=== PATIENT | female | born 1970 | race Caucasian/White ===

== ENCOUNTER 2021-05-10 06:21 | Emergency (ER) | payer BC, OTHER, SELFPAY ==
[2021-05-10 06:25] VITALS: BP 126/86; PULSE 106; RESP 16; TEMP 36.8; O2SAT 97; BMI 35.2
--- NOTE | 2021-05-10 07:20 | ED_ITS ---
HPI - Neck Pain/Injury General: Chief Complaint: Neck Pain/Injury Stated Complaint: felt pop in neck Time Seen by Provider: 05/10/21 06:59 Source: patient Mode of arrival: ambulatory Limitations: no limitations History of Present Illness: HPI Narrative: Patient is a 51-year-old female presents to ED today with a complaint of neck and right shoulder pain. Patient states 4 days ago while washing dishes she felt immediate stabbing sensation in between her upper back and right shoulder blade. She states since that time she has noticed some pain on the right side of her neck as well. Pain seems to be improved with immobilization of the right upper extremity and seems to be worsened with range of motion of her neck and right shoulder. She does complain of pain traveling down her right upper extremity to approximately her elbow. She does not have a headache. No visual changes. She does not describe weakness to the arm or numbness/tingling. Patient states she has been treating with acetaminophen, aspirin, ice/heat. States she recently moved from [place] and does not have a PCP. MD complaint: neck pain and upper back pain Onset (ago): day(s) Place: home Radiation: right lateral, right shoulder and right upper extremity Severity: severe Quality: burning and stabbing Duration: constant Relieving factors: immobilization Exacerbating factors: movement of extremity and movement of neck Associated symptoms: Reports no associated symptoms; Denies dizziness or headache(s) Treatments prior to arrival: acetaminophen and other (aspirin) Review of Systems Const: Denies: fever(s), chills, body aches, fatigue or malaise Eyes: Denies: change in vision, blurry vision or photophobia Card: Denies: chest pain or palpitations Resp: Denies: dyspnea GI: Denies: abdominal pain Musc: Reports: neck pain and joint pain (R shoulder); Denies: back pain, extremity pain, extremity swelling or joint swelling Neuro: Denies: headache(s), numbness in extremities, weakness in extremities, sensory changes or dizziness Physical Exam Const: COMMON NORMALS: no acute distress, patient oriented x3, no limitations and alert GENERAL APPEARANCE: cooperative NUTRITIONAL APPEARANCE: obese ORIENTATION/CONSCIOUSNESS: Yes awake, Yes oriented to person, Yes oriented to place and Yes oriented to time HENMT: COMMON NORMALS: normocephalic and atraumatic HEAD & SCALP: normal to inspection, normocephalic and atraumatic Eye: GENERAL EYE: normal light reflex DIRECT OPHTHALMOSCOPY: Yes normal light reflex Neck/C-Spine: COMMON NORMALS: full ROM, no lymphadenopathy and no meningeal signs CERVICAL SPINE: Yes cervical ROM normal, No step off deformity, Yes Paracervical muscle tenderness, Yes Trapezius muscle tenderness and No Lhermitte's sign positive OTHER: patient has TTP throughout R paraspinal cervical muscles-pain is worse with L flexion and lateral rotation to the R patient has maximum tenderness to the R of her thoracic in between medial edge of scapula; ROM of her shoulder (full) elicits discomfort here NECK IMAGES: 1. Shoulders Back: 1. Resp: COMMON NORMALS: normal respiratory effort and clear to auscultation bilaterally AUSCULTATION: clear to auscultation bilaterally Cardio: COMMON NORMALS: regular rate and regular rhythm RATE: regular rate RHYTHM: regular rhythm Back/Pelvis: THORACIC SPINE/UPPER BACK: Yes paraspinal muscle tenderness Thoracic paraspinal muscle tenderness: right LUMBAR SPINE/LOWER BACK: Yes normal to inspection and No lumbar spinal tenderness Extremity: COMMON NORMALS: normal to inspection, full ROM and capillary refill normal GENERAL: Yes normal exam except as noted RIGHT UPPER EXTREMITY: Yes shoulder joint (full ROM but movement elicits pain to R thoracic paraspinal muscles) Neuro: ALPHONSE COMA SCALE: document [facility] findings [place] coma scale eye opening: Spontaneous [place] coma scale verbal response: Orientated [place] coma scale motor response: Obey commands [place] coma scale total score: 15 COMMON NORMALS: patient oriented x3, CN's II-XII intact bilaterally, moves all extremities, no focal motor deficits, no sensory deficits noted and gait normal SENSORIUM/ORIENTATION: Yes alert, Yes oriented to person, Yes oriented to place and Yes oriented to time MENINGEAL SIGNS: Yes no meningeal signs Skin: COMMON NORMALS: no rashes or lesions noted GENERAL SKIN EXAM: no rashes or lesions noted TRAUMA: no lacerations or abrasions Course 2 Vital Signs: Vital signs: Vital Signs Temperature 98.2 F 05/10/21 06:25 Pulse Rate 106 H 05/10/21 06:25 Respiratory Rate 16 05/10/21 06:25 Blood Pressure 126/86 05/10/21 06:25 Pulse Oximetry 97 05/10/21 06:25 MDM - Neck Pain/Injury MDM Narrative: Medical decision making narrative: DDx-trapezius/shoulder strain, cervical strain/cervical radiculopathy, facet osteoarthritis, or other musculoskeletal strain. No red flags on exam. Will treat with steroids, muscle relaxers, and pain meds (she has been taking aspirin and acetaminophen without relief/allergy to NSAIDS) and have her follow up with primary care for further evaluation/management if symptoms do not improve. Discharge Plan Discharge Patient Disposition: Home Clinical Impression: Strain of right trapezius muscle Qualifiers: Encounter type: initial encounter Qualified Code(s): S46.811A - Strain of other muscles, fascia and tendons at shoulder and upper arm level, right arm, initial encounter Condition: Stable Prescriptions: New cyclobenzaprine 10 mg tablet 10 mg PO TID Qty: 14 RF: 0 tramadol 50 mg tablet 50 mg PO Q6H PRN (Reason: pain) Qty: 14 RF: 0 Medrol (Donnie) 4 mg tablets,dose pack See Rx Instructions .ROUTE .COMPLEX Qty: 21 RF: 0 Discharge Orders: Discharge ED (Routine); Ordered 05/10/21 Ordered By: Kori Can Patient Instructions: Muscle Strain (ED), Musculoskeletal Pain (ED) Activity Restrictions/Additional Instructions: As we discussed case management should contact you shortly to set you up with a primary care provider for further evaluation and follow-up. Coding Level of Care Code ED [employer] for [employer] Fwd Exam Comprehensive
[2021-05-10] MEDS: dexamethasone 10 mg/mL INJ 8 MG IM (07:35)
[2021-05-10 07:45] VITALS: BP 126/86; PULSE 106; RESP 16; TEMP 36.8; O2SAT 97
--- NOTE | 2021-05-16 13:37 | DCPLANNER ---
rd manager had message to speak with patient about getting established with a primary care physician. rd manager called patient, she stated that she had another phone call and would call case planner back.
== END 2021-05-10 07:45 | disposition home or self-care (01) ==
PROVIDERS: Emergency Provider Physician Assistant
DX: S46.811A Strain of other muscles, fascia and tendons at shoulder and upper arm level, right arm, initial encounter (principal); X58.XXXA Exposure to other specified factors, initial encounter
CPT/HCPCS: 96372; 99283; J1100